=== PATIENT | female | born 1975 | race Caucasian/White ===

== ENCOUNTER 2017-11-25 14:00 | Outpatient (CLI) | payer OTHER | END 2017-11-25 14:01 | disposition home or self-care (01) | LOC: BICMAMMO 14:00 | PROVIDERS: ATTEND Family Medicine | DX: Z12.31 Encounter for screening mammogram for malignant neoplasm of breast (principal); Z98.82 Breast implant status | CPT/HCPCS: 77063; 77067 ==

== ENCOUNTER 2018-11-14 07:39 | Outpatient (CLI) | payer OTHER ==
--- NOTE | 2018-11-14 10:15 | MRI ---
MRI CERVICAL SPINE WITHOUT CONTRAST: HISTORY: Bilateral arm numbness from the elbows down. History of fall. FINDINGS: Vertebral body heights and marrow signal are maintained. There is a linear lucency at the inferior a spect of the C2 vertebra, consistent with dental synchondrosis. Also noted is another linear lucency through the superior tip of the odontoid process, without accompanying edema, which may represent in complete fusion or an old fracture. There are disk osteophyte complexes and uncovertebral hypertroph ic changes at multiple levels in the cervical spine. These result in cord compression with edema at the C4-C5 and at the C5-C6 levels and anterior cord impingement at the C6-C7 level. There is severe bilateral neural foraminal stenosis at the C4-C5, moderate right and severe left neur al foraminal stenosis at the C5-C6 level, and severe left neural foraminal stenosis at the C6-C7 leve l. No syringomyelia or myelomalacia is seen. The paraspinal musculature is normal. IMPRESSION: Cervical spondylosis with multilevel neural foraminal stenoses, central canal stenoses and cord compr ession, as described above. POS: TPC
== END 2018-11-14 07:40 | disposition home or self-care (01) ==
LOC: TBSIIMAG 07:39
PROVIDERS: ATTEND Family Medicine
DX: M47.22 Other spondylosis with radiculopathy, cervical region (principal); M48.02 Spinal stenosis, cervical region; G95.20 Unspecified cord compression
CPT/HCPCS: 72141

== ENCOUNTER 2018-12-27 08:48 | Outpatient (CLI) | payer OTHER ==
--- NOTE | 2018-12-27 09:55 | RAD ---
CERVICAL SPINE THREE VIEWS: HISTORY: M54.2, neck pain. Preoperative evaluation. TECHNIQUE: Exam includes neutral, flexion and extension lateral views of the neck. FINDINGS: Disk osteophytosis changes, particularly at C6-C7. No significant malalignment. No abnormal transla tion between flexion and extension. No prevertebral soft tissue swelling. IMPRESSION: Cervical spondylosis. POS: OFF
== END 2018-12-27 08:49 | disposition home or self-care (01) ==
LOC: TBSIIMAG 08:48
PROVIDERS: ATTEND Neurological Surgery
DX: M54.2 Cervicalgia (principal); M47.812 Spondylosis without myelopathy or radiculopathy, cervical region
CPT/HCPCS: 72040

== ENCOUNTER 2019-01-31 07:29 | Outpatient (CLI) | payer OTHER ==
[2019-01-31 15:58] LABS: Hemoglobin 13.9 g/dL (12.0-16.0); Mean Corpuscular HGB CONC 34.2 g/dL (32.0-36.0); Mean Corpuscular Hemoglobin 31.8 pg (27.0-31.0); Mean Platelet Volume 7.3 fL (7.4-10.4); Platelet Count 257 thou/uL (130-400); RBC Distribution Width 11.8 % (11.5-14.5); Red Blood Cell (RBC) Count 4.37 mill/uL (4.20-5.40); White Blood Cell (WBC) Count 4.5 thou/uL (4.8-10.8)
[2019-01-31 16:03] LABS: BHCG - Serum Negative (NEGATIVE); Pregs Control Background? CLEAR/WHITE (CLR/WHITE); Pregs Control Bar Appear? YES (CONTROL BAR)
[2019-01-31 16:05] LABS: PTT 25.9 SEC (22.9-36.1); Prothrombin Time 12.7 SEC (12.0-14.7)
== END 2019-01-31 07:30 | disposition home or self-care (01) ==
LOC: LABBT 07:29
PROVIDERS: ATTEND Neurological Surgery
DX: Z01.812 Encounter for preprocedural laboratory examination (principal); M48.02 Spinal stenosis, cervical region; M54.12 Radiculopathy, cervical region; G95.9 Disease of spinal cord, unspecified
CPT/HCPCS: 84703; 85027; 85610; 85730

== ENCOUNTER 2019-02-10 08:49 | Inpatient (IN) | payer OTHER ==
[2019-01-31 15:19] VITALS: BMI 23.0
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
[2019-02-10] MEDS ORDERED: Scopolamine 1.5 mg/72 hour Patch ONE (09:15)
[2019-02-10] MEDS ORDERED: Midazolam HCl 2 mg/2 ml Vial ONE (10:09)
[2019-02-10] MEDS ORDERED: Glycopyrrolate 0.2 MG/ML 5 ML SYRINGE ONE (10:26)
[2019-02-10] MEDS ORDERED: Calcium Chloride 1 GM/10 ML Abboject SYRINGE ONE (10:26)
[2019-02-10] MEDS ORDERED: PROPOFOL 200 MG/20 ML VIAL ONE (10:26)
[2019-02-10] MEDS ORDERED: Dexamethasone 20 MG/5 ML VIAL ONE (10:26)
[2019-02-10] MEDS ORDERED: Lidocaine 1% PF 5 ML VIAL ONE (10:26)
[2019-02-10] MEDS ORDERED: Ondansetron PF 4 MG/2 ML Vial ONE (10:26)
[2019-02-10] MEDS ORDERED: ePHEDrine/0.9% NaCl/PF SYRINGE 50 mg/10 ml ONE (10:26)
[2019-02-10] MEDS ORDERED: Rocuronium Bromide 10 MG/ML (10ML VIAL) ONE (10:26)
[2019-02-10] MEDS ORDERED: PHENYLEPHRINE-NS 100 MCG/ML 10 ML SYRINGE ONE (10:26)
[2019-02-10] MEDS ORDERED: Thrombin 5000 UNITS/5 ML VIAL ONE (10:28)
[2019-02-10] MEDS ORDERED: Sodium Chloride 0.9% 20 ML ONE (10:28)
[2019-02-10] MEDS ORDERED: Fentanyl 100 MCG/2 ML VIAL ONE ×3 (10:35→14:52)
[2019-02-10] MEDS ORDERED: Phenylephrine HCL 10 MG/ML VIAL ONE (12:40)
[2019-02-10] MEDS ORDERED: Ondansetron HCl/PF 4 MG/2 ML Vial IVP PRN (15:01)
[2019-02-10] MEDS ORDERED: PACU-Morphine 4MG/ML VIAL SLOW IVP PRN (15:01)
[2019-02-10] MEDS ORDERED: Meperidine HCl/PF 25 MG/ML VIAL SLOW IVP PRN (15:01)
[2019-02-10] MEDS ORDERED: Promethazine HCl 25 MG/ML VIAL IM PRN ×2 (15:01→15:10)
[2019-02-10] MEDS ORDERED: Morphine Sulfate 2 MG/ML SYRINGE SLOW IVP PRN (15:01)
[2019-02-10] MEDS ORDERED: HYDROmorphone 2 MG/ML VIAL SLOW IVP PRN (15:01)
[2019-02-10] MEDS ORDERED: Promethazine HCl 25 MG/ML VIAL SLOW IVP PRN (15:01)
[2019-02-10] MEDS ORDERED: Ondansetron PF 4 MG/2 ML Vial IVP PRN (15:10)
[2019-02-10] MEDS ORDERED: Mag-Al 1200 mg/1200 mg/30 ML UDCUP PO PRN (15:10)
[2019-02-10] MEDS ORDERED: Morphine 2 MG/ML SYRINGE SLOW IVP PRN (15:10)
[2019-02-10] MEDS ORDERED: Acetaminophen/Codeine 30-300mg Tablet PO PRN (15:10)
[2019-02-10] MEDS ORDERED: diphenhydrAMINE 25 MG CAP PO PRN (15:10)
[2019-02-10] MEDS ORDERED: Promethazine 25 MG TAB PO PRN (15:10)
[2019-02-10] MEDS ORDERED: Bisacodyl 10 MG SUPP PR PRN (15:10)
[2019-02-10] MEDS ORDERED: Milk Of Magnesia 30 ML UDCUP PO PRN (15:10)
[2019-02-10] MEDS ORDERED: tiZANidine HCl 4 MG TAB PO PRN (15:10)
[2019-02-10] MEDS ORDERED: Morphine 4 MG/ML VIAL SLOW IVP PRN (15:10)
[2019-02-10] MEDS ORDERED: diphenhydrAMINE 50 MG/ML VIAL IVP PRN (15:10)
[2019-02-10] MEDS ORDERED: traMADol HCl 50 MG TAB PO PRN (15:13)
--- NOTE | 2019-02-10 15:50 | OP ---
DATE OF PROCEDURE: 02/10/2019 INTERVENTIONAL TECHNOLOGIST: Corrina Pantoja PA-C PREOPERATIVE INDICATION: Prevent neurological deterioration. PREOPERATIVE DIAGNOSIS: Cervical intervertebral disk disease with cord compression and myelopathy at C4-C5, C5-C6 and C6-C7. POSTOPERATIVE DIAGNOSIS: Cervical intervertebral disk disease with cord compression and myelopathy at C4-C5, C5-C6 and C6-C7. PROCEDURES PERFORMED: 1. Anterior cervical diskectomy, intervertebral arthrodesis, placement of intervertebral biomechanical device, anterior cervical plating, C4-C5, C5-C6, and C6-C7. 2. Local morselized autograft and morselized allograft. 3. Operating microscope. PREOPERATIVE MEDICATION: Ancef 2 g IV. DRAIN NUMBER: Zero. DRAIN TYPE: None. DESCRIPTION OF PROCEDURE: The patient was brought to the operating room. General endotracheal anesthesia was induced. The patient was carefully positioned on the operating table with her head supported by a gel-filled doughnut-shaped headrest and a lateral fluoro radiograph was used to plan our incision. The right side of the neck was sterilely prepped and draped. We opened the incision with a 10 blade knife and controlled bleeding with bipolar cautery. We dissected sharply to the platysma and cut this muscle in line with our incision. We continued our dissection medial to the sternocleidomastoid and lateral to the trachea and esophagus until we arrived to the prevertebral space. We placed a marker at C5-C6 and took a lateral fluoro radiograph to confirm the levels upon which we were operating. We then elevated the longus colli muscles off the anterior surface of C4, C5, C6, and C7. We placed a self-retaining retractor at the level of C5. We placed distraction pins. We placed a self-retaining retractor under the longus colli muscles laterally at C5 and then placed distraction pins at C4 and C6. We distracted across the intervening interspaces. We incised the interspaces with a 15 blade knife and removed disk contents using curettes and rongeurs. As we approached the posterior longitudinal ligament, we brought the operative microscope into the field. Under microscopic magnification using microsurgical techniques, we removed posterior osteophytes and posterior longitudinal ligament across the entire interspace from one neural foramen to the other at C4-C5 and at C5-C6. With the decompression, the dura was secure as well as all 4 nerve roots, we turned our attention to arthrodesis. Curettes were used to prepare the endplates. We measured the height of the interspace with a bone rasp to 7 mm at C4-C5 and at C5-C6. Two separate PEEK intervertebral grafts were brought into the field measuring 7 mm in height. These intervertebral devices were loaded with demineralized bone matrix and morselized autograft and advanced into their interspaces under radiographic guidance to the appropriate depth. The autograft was obtained from osteophytes removed during our decompression, which were cleaned of soft tissue attachments morcellized and added into demineralized bone matrix to form a fusion substrate. We then removed our distraction pin from C4 and moved our lateral retractors down to C6-C7. Distraction pin was placed at C7 and we distracted across the interspace from the C6 distraction pin to the C7 distraction pin. We incised the interspace and removed disk contents using curettes and rongeurs. We removed the posterior longitudinal ligament and posterior osteophytes, as we had done at the other two interspaces across the entire C6-C7 level from one neural foramen to the other. With our decompression secured, we turned our attention to arthrodesis here. Curettes were used to prepare the endplates. We measured the height of the interspace with a bone rasp to 7 mm. A 7-mm PEEK device was brought into the field, loaded with demineralized bone matrix and morselized autograft and advanced into the C6-C7 interspace under radiographic guidance to the appropriate depth. I then removed both our distraction pins and the operative microscope. A 54-mm anterior cervical plate was brought into the field. We drilled pilot captain holes through the plate into the vertebral bodies at C4, C5, C6, and C7, and we affixed the plate using 14-mm screws. Variable angle screws were used at C4, C5, and C6 and fixed angle screws at C7. We engaged the locking mechanism over each of the 8 screws. AP and lateral fluoro radiographs confirmed adequate positioning of our instrumentation. We irrigated with bacitracin irrigation. We closed the wound in anatomical layers, and we applied a sterile dressing. This was a clean case, no contamination. Job ID: [id number]
[2019-02-10] MEDS: Sodium Chloride 0.9% 1,000 ML IV SCH (17:29)
[2019-02-10] MEDS: CEFAZOLIN 2 GM in Premix Bag 1 BAG IVPB SCH (17:29)
[2019-02-11] MEDS: CEFAZOLIN 2 GM in Premix Bag 1 BAG IVPB SCH (02:03)
[2019-02-11] MEDS: Acetaminophen/Codeine 30-300mg Tablet PO PRN ×2 (02:07→13:08)
[2019-02-11] MEDS ORDERED: AMPHETAMINE PO SCH (09:00)
[2019-02-11] MEDS ORDERED: NORETHINDRONE E ESTRADIOL IRON PO SCH (09:00)
[2019-02-11] MEDS ORDERED: Cyclobenzaprine 10 MG TAB PO SCH (09:00)
[2019-02-11] MEDS ORDERED: DEXTROAMPHETAMINE PO SCH (09:00)
[2019-02-11] MEDS: Sodium Chloride 0.9% 1,000 ML IV SCH (09:06)
--- NOTE | 2019-02-11 09:07 | PRG ---
DATE OF SERVICE: 02/11/2019 Ms. Natarajan is 1 day out from a 3-level ACDF. She is anxious to get out of the hospital. She has a sore throat, but otherwise feels well. Subjectively, her arms and hands feel a bit better than they did before surgery. Her vitals have been stable. Her neurological examination is stable as well. Ms. Natarajan will be ready for discharge this morning. We went over wound care, activity restrictions, and followup. Job ID: [id number]
[2019-02-11 11:25] VITALS: BP 112/69; TEMP 98.4
== END 2019-02-11 15:50 | disposition home or self-care (01) | DRG 472 ==
LOC: SDC 08:49 → SURG A 15:00
PROVIDERS: ADMIT Neurological Surgery; ATTEND Neurological Surgery
PROC: 0RG20A0 Fusion of 2 or more Cervical Vertebral Joints with Interbody Fusion Device, Anterior Approach, Anterior Column, Open Approach (ICD-10-PCS; principal; 2019-02-10)
PROC: 0RB30ZZ Excision of Cervical Vertebral Disc, Open Approach (ICD-10-PCS; 2019-02-10)
PROC: 00NW0ZZ Release Cervical Spinal Cord, Open Approach (ICD-10-PCS; 2019-02-10)
DX: M48.02 Spinal stenosis, cervical region (principal); M50.023 Cervical disc disorder at C6-C7 level with myelopathy; F98.8 Other specified behavioral and emotional disorders with onset usually occurring in childhood and adolescence; Z79.899 Other long term (current) drug therapy
CPT/HCPCS: 76000; C1713; C1776; J0690; J1100; J2001; J2250; J2370; J2405; J2704; J3010; J3490

== ENCOUNTER 2019-04-13 10:14 | Outpatient (CLI) | payer OTHER ==
--- NOTE | 2019-04-13 11:22 | RAD ---
THREE VIEWS CERVICAL SPINE: HISTORY: Neck pain. Follow-up surgery. FINDINGS: In the AP projection, there are mild hypertrophic changes of the facets. No malalignment. On the open-mouth projection, lateral masses of C1 and C2 articulate appropriately. Limited evaluatio n of the odontoid process On the lateral projection, no significant prevertebral soft tissue swelling. There is straightening o f cervical lordosis. Anterior fusion plate with transvertebral vertebral body screw at C4, C5, C6 and C7. No perihardware lucency. Disc prosthesis at C3-C4, C4-C5 and C5-6. Spondylolisthesis: 1.7 mm of anterolisthesis of C3 upon C7. IMPRESSION: Findings compatible with cervical fusion as described above. Transcribed Date/Time: 04/13/2019 11:24 AM
== END 2019-04-13 10:15 | disposition home or self-care (01) ==
LOC: TBSIIMAG 10:14
PROVIDERS: ATTEND Neurological Surgery
DX: M54.2 Cervicalgia (principal)
CPT/HCPCS: 72040

== ENCOUNTER 2020-12-19 14:42 | Outpatient (CLI) | payer OTHER | END 2020-12-19 14:43 | disposition home or self-care (01) | LOC: BICMAMMO 14:42 | PROVIDERS: ATTEND Family Medicine | DX: Z12.31 Encounter for screening mammogram for malignant neoplasm of breast (principal); Z98.82 Breast implant status | CPT/HCPCS: 77063; 77067 ==